=== PATIENT | female | born 1955 | race Caucasian/White ===

== ENCOUNTER 2017-03-07 19:45 | Emergency (ER) | payer MEDICARE ==
--- NOTE | 2017-03-07 20:25 | ERPHSYRPT ---
- History of Present Illness Time Seen by Provider: 03/07/17 20:13 Source: patient, family Patient Subjective Stated Complaint: REPORTS FROM HOME HOSPICE NURSE, WHO HAD ORDER TO PLACE RAMÍREZ CATHETER ET WAS UNABLE TO AT HOME, SO ARRIVES BY AMBULANCE TO HAVE THAT PROCEDURE DONE - PT STATES THAT HER ABDOMEN HURTS Triage Nursing Assessment: LIFTED TO CART PER EMS PERSONNEL - MOVES ALL EXTREMITIES WITH PROFOUND WEAKNESS. ALERT/PLEASANTLY CONFUSED PER NORMAL. RESPS EASY - NON-LABORED. SKIN SALLOW WITH MULTIPLE BRUISES Physician History: This is a 61-year-old white female with history COPD chronic liver failure who is on hospice. Brought into the emergency room brought by medics with complaints that the patient had not had urinary output days Ramírez has been ordered for the patient however hospice nurse Was Unable Pl., Ramírez. Patient did have some suprapubic discomfort arrival. the patient is better after Ramírez placement in the emergency room. Patient apparently had greater than 1300 mL out. Past medical history COPD and alcoholism, liver failure,. Timing/Duration: day(s) (3 days) Severity: moderate Modifying Factors: Improves With: nothing Associated Symptoms: abdominal pain, other (unable to urinate), No nausea, No vomiting, No shortness of breath, No heartburn, No diaphoresis, No cough, No chills, No chest pain, No fever, No headaches, No loss of appetite, No malaise, No rash, No syncope, No seizure, No weakness Allergies/Adverse Reactions: Sulfa (Sulfonamide Antibiotics) Allergy (Verified 03/07/17 19:53) Hx Tetanus, Diphtheria Vaccination/Date Given: No Hx Influenza Vaccination/Date Given: No Hx Pneumococcal Vaccination/Date Given: No Immunizations Up to Date: Yes - Review of Systems Constitutional: No Fever, No Chills Eyes: No Symptoms Ears, Nose, & Throat: No Symptoms Respiratory: No Cough, No Dyspnea Cardiac: No Chest Pain, No Edema, No Syncope Abdominal/Gastrointestinal: Abdominal Pain (suprapubic abdominal pain), No Nausea, No Vomiting, No Diarrhea, No Constipation, No Hematemesis, No Hematochezia, No Melena, No Dysphagia, No Appetite Changes Genitourinary Symptoms: Urinary Retention Musculoskeletal: No Back Pain, No Neck Pain Skin: No Rash Neurological: No Dizziness, No Focal Weakness, No Sensory Changes Psychological: No Symptoms Endocrine: No Symptoms All Other Systems: Reviewed and Negative - Past Medical History Pertinent Past Medical History: Yes Respiratory History: COPD Other Medical History: ALCOHOLISM - Social History Smoking Status: Former smoker Exposure to second hand smoke: No Drug Use: none Patient Lives Alone: No - Nursing Vital Signs Nursing Vital Signs: Initial Vital Signs Temperature 98.3 F Temperature Source Oral Pulse Rate 94 Respiratory Rate 16 Blood Pressure [Right Arm] 131/74 Pain Intensity 0 - Physical Exam General Appearance: mild distress, alert Eye Exam: PERRL/EOMI, eyes nml inspection Ears, Nose, Throat Exam: normal ENT inspection, TMs normal, pharynx normal, moist mucous membranes Neck Exam: normal inspection, non-tender, supple, full range of motion Respiratory Exam: normal breath sounds, lungs clear, No respiratory distress Cardiovascular Exam: regular rate/rhythm, normal heart sounds, normal peripheral pulses Gastrointestinal/Abdomen Exam: soft, tenderness (suprapubic tenderness prior to ramírez placement , minimal tenderness after placement) Back Exam: normal inspection, normal range of motion, No CVA tenderness, No vertebral tenderness Extremity Exam: normal inspection, normal range of motion, pelvis stable Neurologic Exam: alert, oriented x 3, cooperative, normal mood/affect, nml cerebellar function, nml station & gait, sensation nml, No motor deficits Skin Exam: normal color, warm, dry, No rash SpO2 Interpretation: normal (97%) SpO2: 97 Oxygen Delivery: Room Air - Course Nursing assessment & vital signs reviewed: Yes Ordered Tests: Active Orders 24 hr Category Date Time Status Ramírez [Catheter-Crosby Ramírez] STAT Care 03/07/17 20:18 Active UA W/ MICROSCOPIC Stat Lab 03/07/17 20:19 Completed Lab/Rad Data: Laboratory Results 03/07/17 Range/Units 20:19 Ur Collection Type CATH Urine Color HETAL (YELLOW) Urine Appearance CLEAR (CLEAR) Urine pH 6.0 (5-6) Ur Specific [place] 1.020 (1.005-1.025) Urine Protein TRACE (Negative) Urine Glucose (UA) NEGATIVE (NEGATIVE) mg/dL Urine Ketones TRACE (NEGATIVE) Urine Nitrite NEGATIVE (NEGATIVE) Urine Bilirubin NEGATIVE (NEGATIVE) Urine Urobilinogen 1 (0-1) mg/dL Urine WBC (Auto) NEGATIVE (NEGATIVE) Urine RBC (Auto) NEGATIVE (0-5) Adalid/ul Ur Epithelial Cells RARE (FEW) /HPF Urine Mucus SLIGHT (NEGATIVE) /HPF Specimen Received 03/07/17:2210 - Progress Progress: improved Progress Note: 03/07/17 20:25 This is a 61-year-old white female alcoholism, chronic liver failure with hospice with a urinary retention 3 days hospice nurse unable to place ramírez. patient had ramírez placed in the emergency room, patient feeling much better. family and patient do not want blood draw, have sent urine. 03/07/17 20:45 Patient without signs of urinary tract infection Will discharge patient with Ramírez in place. - Departure Time of Disposition: 20:46 Departure Disposition: Home Clinical Impression: Urinary retention Condition: Fair Critical Care Time: No Referrals: DOCTOR,NO FAMILY [Primary Care Provider] - Instructions: Urinary Retention in Women Additional Instructions: Return home. Follow-up with hospice and your family doctor. Continue Ramírez. Return for acute distress or for severe symptoms.
[2017-03-07 20:35] LABS: ADD URINE CULTURE? NO (NO); COMPLETE URINE MICROSCOPIC? YES; Collection Type CATH; Epithelial Cells RARE /HPF (FEW); Mucus SLIGHT /HPF (NEGATIVE)
[2017-03-07 21:20] VITALS: BP 138/68; PULSE 93; O2SAT 99
== END 2017-03-07 21:28 | disposition home or self-care (01) ==
LOC: ED 19:45
DX: R33.9 Retention of urine, unspecified (principal); J44.9 Chronic obstructive pulmonary disease, unspecified; K72.90 Hepatic failure, unspecified without coma
CPT/HCPCS: 51702; 81000; 99284